=== PATIENT | female | born 1990 | race Caucasian/White ===

== ENCOUNTER 2016-12-01 10:54 | Inpatient (IN) ==
[2016-12-01] MEDS ORDERED: CYTOTEC PO ONE (21:07)
[2016-12-01] MEDS ORDERED: PEPCID PO ONE (21:07)
[2016-12-01] MEDS ORDERED: PITOCIN 30 UNITS/LR 30 UNITS/500 ML IV.SOLN IV SCH (21:07)
[2016-12-01] MEDS ORDERED: PEPCID IV PRN (21:07)
[2016-12-01] MEDS ORDERED: TYLENOL PO PRN (21:07)
[2016-12-01] MEDS ORDERED: LR 500 ML IV ONE (21:07)
[2016-12-01] MEDS ORDERED: PEPCID PO PRN (21:07)
[2016-12-01] MEDS ORDERED: REGLAN PO ONE (21:07)
[2016-12-01] MEDS ORDERED: AMBIEN PO PRN (21:07)
[2016-12-01] MEDS ORDERED: KEFZOL 1 GM/D5W 1 GM/50 ML IVPB IV PRN (21:07)
[2016-12-01] MEDS ORDERED: STADOL IV PRN ×3 (21:07)
[2016-12-01] MEDS ORDERED: ZOFRAN IV PRN (21:07)
[2016-12-01] MEDS ORDERED: BRETHINE SUBQ PRN (21:07)
[2016-12-01] MEDS: LR 1,000 ML IV ONE (21:30)
[2016-12-01 22:05] LABS: MANUAL DIFF NEEDED? NO
[2016-12-01 22:07] LABS: BASO% 0.2 % (0.0-0.8); EOS% 0.8 % (0.0-10.0); HEMATOCRIT 39.9 % (37.0-47.0); HEMOGLOBIN 13.5 g/dL (12.0-16.0); IMM GRAN# 0.08 X1000 (0.0-0.04); IMM GRAN% 0.6 % (0.0-0.5); LYMPH# 2.35 X1000 (1.2-3.4); LYMPH% 18.1 % (20.5-51.1); MCH 31.8 PG (27-31); MCHC 33.8 g/dL (33-37); MCV 94.1 FL (81-99); MONO# 1.11 X1000 (0.11-0.59); MONO% 8.6 % (1.7-9.3); MPV 10.9 FL (7.4-10.4); NEUT% 71.7 % (42.2-75.2); PLT 199 X1000 (130-400); RBC 4.24 XMIL (4.2-5.4)
[2016-12-02] MEDS ORDERED: CYTOTEC PO SCH (01:07)
[2016-12-02] MEDS: LR 1,000 ML IV ONE (02:20)
[2016-12-02] MEDS ORDERED: MINERAL OIL ONE (04:58)
[2016-12-02] MEDS ORDERED: FENTANYL-BUPIV-NS 2 MCG-0.1% 200 ML ONE (04:58)
[2016-12-02] MEDS ORDERED: XYLOCAINE-MPF 1% ONE (04:58)
[2016-12-02] MEDS ORDERED: LR 1,000 ML ONE (05:01)
[2016-12-02] MEDS ORDERED: PITOCIN 20 UNITS/LR 20 UNITS/1,000 ML IV.SOLN ONE (07:17)
[2016-12-02] MEDS ORDERED: PITOCIN 20 UNITS/LR 20 UNITS/1,000 ML IV.SOLN IV SCH (07:24)
[2016-12-02] MEDS ORDERED: BENADRYL PO PRN (07:24)
[2016-12-02] MEDS ORDERED: XYLOCAINE-MPF 1% INJ PRN (07:24)
[2016-12-02] MEDS ORDERED: HYDROXYZINE PO PRN (07:24)
[2016-12-02] MEDS ORDERED: AMBIEN PO PRN (07:24)
[2016-12-02] MEDS ORDERED: M-M-R II VACCINE SUBQ ONE (07:24)
[2016-12-02] MEDS ORDERED: HYDROXYZINE IM PRN (07:24)
[2016-12-02] MEDS ORDERED: BOOSTRIX VACCINE IM ONE (07:24)
[2016-12-02] MEDS ORDERED: PERI MEDS (DERMOPLAST/NUPERCAINAL/TUCKS) MISC PRN (07:24)
[2016-12-02] MEDS ORDERED: CYTOTEC PO PRN (07:24)
[2016-12-02] MEDS ORDERED: MINERAL OIL PO PRN (07:24)
[2016-12-02] MEDS ORDERED: NORCO-10 PO PRN (07:24)
[2016-12-02] MEDS ORDERED: NORCO-5 PO PRN (07:24)
[2016-12-02] MEDS ORDERED: PITOCIN IM PRN (07:24)
[2016-12-02] MEDS ORDERED: PITOCIN 30 UNITS/LR 30 UNITS/500 ML IV.SOLN IV ONE (07:24)
[2016-12-02] MEDS ORDERED: BENADRYL IV PRN (07:24)
--- NOTE | 2016-12-02 07:43 | OPERATIVE NOTE ---
PROCEDURE DATE: 12/02/2016 PRE-DELIVERY DIAGNOSES: 1. Intrauterine at 40 weeks. 2. Rh negative blood type. 3. Nonreassuring heart rates, occiput posterior. POST-DELIVERY DIAGNOSES: 1. Intrauterine at 40 weeks. 2. Rh negative blood type. 3. Nonreassuring heart rates, occiput posterior. PROCEDURE: 1. Vacuum assisted vaginal delivery. 2. Repair of a primary midline laceration. PHYSICIAN: Darío Akbar MD ANESTHESIA: Epidural with Dr. Brown. FINDINGS: Viable female , 3, 7, and 9 Apgars. Infant 8 pounds, 8 ounces. There was a primary midline laceration repaired with 3-0 Polysorb. ESTIMATED BLOOD LOSS: Was 100 mL. FINDINGS: Placenta spontaneous, intact 3 vessel cord. All counts are correct. INDICATIONS/PROCEDURE: Ms. Archer is a 26-year-old who was brought in last night for Cytotec. She received 2 doses of Cytotec and went into labor. Progress throughout the night. Received epidural anesthesia at approximately 5 this morning. Became complete at approximately 6. Labored for 25 minutes. Began pushing. Recurrent heart rate decelerations. Infant +3 occiput posterior. Vacuum applied and pressure of 550 mmHg. With 3 contractions, no popoff's. The delivered occiput posterior. Once head delivered, shoulders and rest of the body delivered without difficulty. The infant was placed on mother's abdomen. Cord doubly clamped and cut. Care of taken over by nursery personnel. Cord blood was obtained. It was noted to be a 3- vessel cord. Gentle traction resulted in delivery of the placenta after approximately 3 minutes. It was inspected and found to be intact. Then inspection of the perineum and vagina revealed the laceration, which was repaired in the usual fashion with 3-0 Polysorb. At this point, a vaginal sweep was done. No clots or foreign material were noted. All counts were correct, 10 Ray-Frantz's, one vag-pack, and one needle. Expect routine . cc: Darío Akbar MD
[2016-12-02] MEDS: MOTRIN PO PRN (22:44)
[2016-12-02] MEDS: PERICOLACE PO SCH (22:44)
[2016-12-02] MEDS: PRECARE PO SCH (22:44)
[2016-12-02] MEDS: HEMOCYTE PLUS CAPSULE PO SCH (22:44)
[2016-12-03 06:34] LABS: MANUAL DIFF NEEDED? NO
[2016-12-03 06:57] LABS: BASO% 0.3 % (0.0-0.8); EOS# 0.13 X1000 (0.0-0.7); EOS% 1.1 % (0.0-10.0); HEMATOCRIT 35.6 % (37.0-47.0); IMM GRAN# 0.05 X1000 (0.0-0.04); IMM GRAN% 0.4 % (0.0-0.5); LYMPH% 19.1 % (20.5-51.1); MCH 32.1 PG (27-31); MCHC 33.7 g/dL (33-37); MCV 95.2 FL (81-99); MONO# 0.98 X1000 (0.11-0.59); MONO% 8.1 % (1.7-9.3); MPV 11.1 FL (7.4-10.4); PLT 159 X1000 (130-400); RBC 3.74 XMIL (4.2-5.4)
[2016-12-03] MEDS: MOTRIN PO PRN ×2 (08:42→17:08)
[2016-12-03] MEDS: PERICOLACE PO SCH (20:09)
[2016-12-03] MEDS: HEMOCYTE PLUS CAPSULE PO SCH (20:09)
[2016-12-03] MEDS: PRECARE PO SCH (20:09)
[2016-12-04 09:22] VITALS: BP 123/80
== END 2016-12-04 13:25 | disposition home or self-care (01) ==
LOC: P.LD 21:04 → P.WC 12-02 10:09
PROVIDERS: ADMIT Obstetrics & Gynecology; ATTEND Obstetrics & Gynecology